=== PATIENT | female | born 1940 | race Caucasian/White ===

== ENCOUNTER 2018-08-04 16:53 | Emergency (ER) | payer MEDICARE, OTHER ==
[~2018-08-04] VITALS: Ht 165.1 cm; Wt 81.6 kg
[2018-08-04 17:37] VITALS: BP 170/91
--- NOTE | 2018-08-04 17:40 | NUR ---
PT PLACED IN CHAIR E TO BE MONITORED UNTIL NEXT AVAILABLE BED IS OPEN
--- NOTE | 2018-08-04 17:46 | NUR ---
PT TO BED 9 VIA WHEELCHAIR
--- NOTE | 2018-08-04 17:50 | NUR ---
78 YO F BIB FAMILY S/P MECHANICAL FALL. PT LANDED ON RIGHT SIDE OF BODY 1 HOUR AGO. PT W/ SWOLLEN RIGHT ARM, RIGHT SIDE OF FACE ABRASION, BLEEDING CONTROLLED. REPORTS NAUSEA, DENIES VOMITING. DENIES LOC. AAOX4, GCS 15. PERRL; LUNGS CLEAR BL, BREATHING UNLABORED; HR EVEN AND REGULAR, BL PERIPHERAL PULSES PRESENT; BS ACTIVE X4, NO TENDERNESS TO PALPATION, NO HEPATOSPLENOMEGALLY PALPATED, RESONANT TO PERCUSSION; PT DENIES ANY FEVER, CP, SOB, OR COUGH AT THIS TIME; PT STATES 8/10 PAIN AT THIS TIME; VSS; PATIENT POSITIONED FOR COMFORT; HOB ELEVATED; BEDRAILS UP X2; BED DOWN.
--- NOTE | 2018-08-04 18:04 | NUR ---
XRAY AT BEDSIDE
[2018-08-04] MEDS ORDERED: KETOROLAC 60 MG/2 ML VIAL IM ONE (18:05)
--- NOTE | 2018-08-04 18:45 | NUR ---
PT. TAKEN TO CT SCAN VIA WHEELCHAIR BY TECH
--- NOTE | 2018-08-04 19:20 | NUR ---
Pt report given to JACK FORD . Transfer of care at this time.
--- NOTE | 2018-08-04 19:20 | NUR ---
Hien andrea in [facility] - 08/04/18 at 1920 by JULITO Pt report given to JACK FORD . Transfer of care at this time.
--- NOTE | 2018-08-04 19:30 | NUR ---
PT RETURNED FROM CT SCAN VIA GURCONY, PT AWAKE, FAMILY AT BEDSIDE.
--- NOTE | 2018-08-04 20:04 | NUR ---
Dr. Oshea evaluating patient at bedside.
--- NOTE | 2018-08-04 20:38 | NUR ---
X-Ray at bedside.
[2018-08-04 21:48] VITALS: BP 162/89
--- NOTE | 2018-08-04 21:50 | NUR ---
Patient discharged with v/s stable. Written and verbal after care instructions given and explained. Patient alert, oriented and verbalized understanding of instructions. Ambulatory with steady gait. All questions addressed prior to discharge. ID band removed. Patient advised to follow up with PMD. Rx of IBUPROFEN, NORCO given. Patient educated on indication of medication including possible reaction and side effects. Opportunity to ask questions provided and answered.
== END 2018-08-04 21:50 | disposition home or self-care (01) ==
LOC: MED 16:53
DX: S52.501A Unspecified fracture of the lower end of right radius, initial encounter for closed fracture (principal); S00.83XA Contusion of other part of head, initial encounter; E11.9 Type 2 diabetes mellitus without complications; I10 Essential (primary) hypertension; Z88.0 Allergy status to penicillin; W01.0XXA Fall on same level from slipping, tripping and stumbling without subsequent striking against object, initial encounter; Y93.89 Activity, other specified; Y92.89 Other specified places as the place of occurrence of the external cause; Y99.8 Other external cause status
CPT/HCPCS: 29125; 70450; 70486; 72125; 72192; 73030; 73080; 73090; 73110; 73130; 82948; 96372; 99284; J1885